=== PATIENT | female | born 1975 | race Two or more races ===

== ENCOUNTER 2019-10-22 09:44 | Emergency (ER) | payer SELFPAY ==
[~2019-10-22] VITALS: Ht 160 cm; Wt 76.8 kg
[2019-10-22 12:26] LABS: BASO # 0.1 10^3/uL (0.0-0.2); BASO % 0.6 % (0.0-1.0); EOS # 0.1 10^3/uL (0.0-0.5); EOS % 0.6 % (0.0-3.0); HEMOGLOBIN 11.7 g/dl (12.0-15.5); LYMPH % 24.3 % (24.0-44.0); MEAN CORPUSCULAR HEMOGLOBIN 23.9 pg (27.0-33.0); MEAN CORPUSCULAR HGB CONC 31.6 g/dl (32.0-36.5); MEAN CORPUSCULAR VOLUME 75.7 fl (80.0-96.0); MONO # 0.7 10^3/uL (0.0-0.8); MONO % 8.3 % (0.0-5.0); NEUTROPHILS # 5.5 10^3/uL (1.5-8.5); PLATELET COUNT, AUTOMATED 280 10^3/uL (150-450); RED BLOOD COUNT 4.89 10^6/uL (4.00-5.40); WHITE BLOOD COUNT 8.3 10^3/uL (4.0-10.0)
[2019-10-22 12:42] LABS: INR 1.08; PROTHROMBIN TIME 13.7 SECONDS (11.8-14.0)
[2019-10-22 12:43] LABS: PARTIAL THROMBOPLASTIN TIME 26.1 SECONDS (25.0-38.4)
[2019-10-22 12:54] LABS: HCG, SERUM QUALITATIVE NEGATIVE (NEGATIVE)
[2019-10-22 12:57] LABS: ALT/SGPT 18 U/L (12-78); AMYLASE 46 U/L (25-115); BILIRUBIN,DIRECT 0.2 MG/DL (0.0-0.2); BILIRUBIN,TOTAL 0.7 MG/DL (0.2-1.0); BLOOD UREA NITROGEN 5 MG/DL (7-18); CALCIUM LEVEL 9.7 MG/DL (8.5-10.1); CARBON DIOXIDE LEVEL 27 MEQ/L (21-32); CHLORIDE LEVEL 104 MEQ/L (98-107); CREATININE FOR GFR 0.71 MG/DL (0.55-1.30); GLOMERULAR FILTRATION RATE > 60.0 (>58); GLUCOSE, FASTING 97 MG/DL (70-100); POTASSIUM SERUM 4.1 MEQ/L (3.5-5.1); SODIUM LEVEL 138 MEQ/L (136-145)
[2019-10-22 12:58] LABS: IRON (FE) 58 UG/DL (50-170); LIPASE 99 U/L (73-393); PERCENT SATURATION 18.3 % (13.2-45.0); TOTAL IRON BINDING CAPACITY 317 UG/DL (250-450); TOTAL PROTEIN 8.1 GM/DL (6.4-8.2)
[2019-10-22] MEDS ORDERED: MECLIZINE 25 MG TABLET PO ONE (13:45)
[2019-10-22] MEDS ORDERED: NS 1,000 ML IV ONE (13:45)
[2019-10-22] MEDS ORDERED: MECL1TAB31 PO (17:13)
[2019-10-22 17:17] VITALS: BP 144/78
--- NOTE | 2019-10-22 21:37 | ECGEPIP ---
[facility] - ED Test Date: 2019-10-22 Pat Name: NADER SKELTON Department: Room: - Gender: Female Visual Arts Teacher: yadiel : 1975 Requested By: BUCKY Dumont Order Number: [id number] Reading MD: Miguelina Christensen Measurements Intervals [place] Rate: 72 P: 25 VT: 169 QRS: -3 QRSD: 98 T: 12 QT: 398 QTc: 437 Interpretive Statements SINUS RHYTHM NSTTW abnormalities NO PRIOR Electronically Signed on 10-22-2019 21:36:47 EST by Miguelina Christensen
[2019-10-22] MEDS ORDERED: AZIT500T5 PO (23:34)
== END 2019-10-22 17:26 | disposition home or self-care (01) ==
LOC: M ED 09:44
DX: R19.7 Diarrhea, unspecified (principal); A04.0 Enteropathogenic Escherichia coli infection; R42 Dizziness and giddiness; R53.1 Weakness; D64.9 Anemia, unspecified; K27.9 Peptic ulcer, site unspecified, unspecified as acute or chronic, without hemorrhage or perforation